=== PATIENT | male | born 2000 | race African-American/Black ===

== ENCOUNTER 2024-11-21 06:41 | Emergency (ER) | payer OTHER, MEDICAID ==
[~2024-11-21] VITALS: Ht 154.9 cm; Wt 72.0 kg
[2024-11-21 06:49] VITALS: BP 145/104; TEMP 36.7; O2SAT 98
[2024-11-21 08:12] VITALS: PULSE 88; RESP 18
[2024-11-21] MEDS ORDERED: TETANUS, DIPHTHERIA, PERTUSSIS VAC/PF 0.5ML (>10YR OLD) IM ONE (08:15)
[2024-11-21] MEDS ORDERED: ACETAMINOPHEN 325MG TABLET PO ONE (08:15)
[2024-11-21] MEDS: ACETAMINOPHEN 325MG TABLET PO SCH (10:28)
[2024-11-21] MEDS: TETANUS, DIPHTHERIA, PERTUSSIS VAC/PF 0.5ML (>10YR OLD) IM ONE (10:28)
== END 2024-11-21 10:30 | disposition home or self-care (01) ==
LOC: ER 06:41
DX: M25.552 Pain in left hip (principal); M25.532 Pain in left wrist; M79.632 Pain in left forearm; V19.40XA Pedal cycle driver injured in collision with unspecified motor vehicles in traffic accident, initial encounter; Y93.55 Activity, bike riding; Y92.89 Other specified places as the place of occurrence of the external cause; Y99.8 Other external cause status
CPT/HCPCS: 73080; 73110; 73502; 90471; 90715; 99284